=== PATIENT | female | born 1965 | race Caucasian/White ===

== ENCOUNTER 2016-10-27 10:54 | Emergency (ER) | payer BC ==
--- NOTE | 2016-10-27 11:39 | ED ---
General Adult HPI - General Chief complaint: Recheck/Abnormal Lab/Rx Stated complaint: cough,rib pain Time Seen by Provider: 10/27/16 11:28 Source: patient, RN notes reviewed, old records reviewed Mode of arrival: ambulatory Limitations: no limitations - History of Present Illness Initial comments: This is a 51-year-old female here for evaluation. This patient comes in for evaluation of rib pain. Patient's a cough congestion and not fill of her period , did have coughing and felt pop on the left side. Patient has no significant cardiac risk factors, does have K surgical history. No smoking. No recent fevers, no modifying factors for symptoms, no pain control - Related Data Home Medications Medication Instructions Recorded Confirmed Naproxen Sodium [Aleve] 440 mg PO BID PRN 10/27/16 10/27/16 Previous Rx's Medication Instructions Recorded Acetaminophen with Codeine 1 tab PO HS #30 tab 10/27/16 [Tylenol w/codeine #3] Benzonatate [Tessalon Perles] 200 mg PO TID #30 capsule 10/27/16 Naproxen [Naprosyn] 500 mg PO Q12HR #60 tab 10/27/16 Allergies Allergy/AdvReac Type Severity Reaction Status Date / Time No Known Allergies Allergy Verified 10/27/16 11:38 Review of Systems ROS Statement: Those systems with pertinent positive or pertinent negative responses have been documented in the HPI. ROS Other: All systems not noted in ROS Statement are negative. Past Medical History Past Medical History: No Reported History History of Any Multi-Drug Resistant Organisms: None Reported Past Surgical History: Bariatric Surgery, Hysterectomy, Tonsillectomy, Tubal Ligation Past Psychological History: No Psychological Hx Reported Smoking Status: Never smoker Past Alcohol Use History: Rare Past Drug Use History: None Reported General Exam Limitations: no limitations General appearance: alert, in no apparent distress Head exam: Present: atraumatic, normocephalic, normal inspection Eye exam: Present: normal appearance, PERRL, EOMI. Absent: scleral icterus, conjunctival injection, periorbital swelling ENT exam: Present: normal exam, mucous membranes moist Neck exam: Present: normal inspection. Absent: tenderness, meningismus, lymphadenopathy Respiratory exam: Present: normal lung sounds bilaterally. Absent: respiratory distress, wheezes, rales, rhonchi, stridor Cardiovascular Exam: Present: regular rate, normal rhythm, normal heart sounds. Absent: systolic murmur, diastolic murmur, rubs, gallop, clicks GI/Abdominal exam: Present: soft, normal bowel sounds. Absent: distended, tenderness, guarding, rebound, rigid Extremities exam: Present: normal inspection, full ROM, normal capillary refill. Absent: tenderness, pedal edema, joint swelling, calf tenderness Back exam: Present: normal inspection Neurological exam: Present: alert, oriented X3, CN II-XII intact Psychiatric exam: Present: normal affect, normal mood Skin exam: Present: warm, dry, intact, normal color. Absent: rash Course Vital Signs 10/27/16 11:13 Temperature 98.0 F Pulse Rate 76 Respiratory 20 Rate Blood Pressure 138/62 O2 Sat by Pulse 99 Oximetry - Reevaluation(s) Reevaluation #1: 10/27/16 12:51 Patient's in no acute distress Medical Decision Making - Medical Decision Making 51 female here for evaluation. Patient is here for evaluation of rib pain left rib pain was worse with cough or movement. Patient has rib contusion, known no noted fracture, no pneumothorax, no pneumonia. Patient was discharged home for pain control with antitussive - Radiology Data Radiology results: report reviewed (Chest x-ray with ribs are negative for fracture, no pneumonia), image reviewed Disposition Clinical Impression: Contusion of rib on left side Disposition: HOME SELF-CARE Condition: Good Instructions: Rib Contusion (ED) Prescriptions: Acetaminophen with Codeine [Tylenol w/codeine #3] 1 tab PO HS #30 tab Benzonatate [Tessalon Perles] 200 mg PO TID #30 capsule Naproxen [Naprosyn] 500 mg PO Q12HR #60 tab Referrals: Mikey Bass III, MD [Primary Care Provider] - 1-2 days
--- NOTE | 2016-10-27 11:55 | XR ---
EXAMINATION TYPE: XR ribs LT w pa chest xray DATE OF EXAM: 10/27/2016 11:48 AM COMPARISON: NONE HISTORY: Pain TECHNIQUE: Single view of the chest for views of the left ribs are submitted. FINDINGS: The lungs are clear. No Evidence for pneumothorax. No evidence for focal contusion. Medi astinal structures are midline. Evaluation of the ribs fails to demonstrate evidence for displaced r ib fracture or secondary sign of rib fracture. IMPRESSION: Negative study
[2016-10-27 13:02] VITALS: BP 129/78; PULSE 78; RESP 16; TEMP 97.8
== END 2016-10-27 13:01 | disposition home or self-care (01) ==
LOC: EC 10:54
DX: S20.212A Contusion of left front wall of thorax, initial encounter (principal); X50.9XXA Other and unspecified overexertion or strenuous movements or postures, initial encounter
CPT/HCPCS: 99283

== ENCOUNTER → 2019-04-01 | Outpatient (CLI) | payer OTHER ==
--- NOTE | 2019-04-04 10:04 | MM ---
Reason for exam: screening (asymptomatic). Last mammogram was performed 11 years and 11 months ago. Physical Findings: A clinical breast exam by your physician is recommended on an annual basis and results should be correlated with mammographic findings. MG Screening Mammo w CAD Bilateral CC and MLO view(s) were taken. No prior studies available for comparison. There are scattered fibroglandular densities. There is no discrete abnormality. ASSESSMENT: Negative, BI-RAD 1 RECOMMENDATION: Routine screening mammogram of both breasts in 1 year.
== END | disposition home or self-care (01) ==
LOC: RADMAMWWP 07:30
PROVIDERS: ATTEND Pediatrics
DX: Z12.31 Encounter for screening mammogram for malignant neoplasm of breast (principal)
CPT/HCPCS: 77067

== ENCOUNTER → 2021-10-03 | Outpatient (CLI) | payer OTHER ==
--- NOTE | 2021-10-04 04:58 | MR ---
EXAMINATION TYPE: MR hip LT wo con DATE OF EXAM: 10/03/2021 COMPARISON: None HISTORY: Left hip pain Multiplanar multiecho imaging of the pelvis and left hip without contrast. Pelvic ring is intact. Sacroiliac joints appear normal. Proximal femurs appear intact. Hip joint spac es are fairly normal. There is no evidence of hip dysplasia. There is no sign of avascular necrosis. There is no evidence of a fracture. Bladder distends smoothly. There is no free fluid in the pelvis. There is no evidence of a pelvic mas s. There is no evidence of a soft tissue mass. Muscle structures are symmetric. There is no sign of hip joint effusion. IMPRESSION: Negative MR scan of the left hip.
== END | disposition home or self-care (01) ==
LOC: RADMRIMAIN 07:57
PROVIDERS: ATTEND Orthopaedic Surgery
DX: M25.552 Pain in left hip (principal)

== ENCOUNTER → 2021-12-18 | Outpatient (CLI) | payer OTHER ==
--- NOTE | 2021-12-18 12:19 | MR ---
EXAMINATION TYPE: MR lumbar spine wo con DATE OF EXAM: 12/18/2021 12:15 PM COMPARISON: NONE HISTORY: Left hip pain x2 years Multiplanar, MultiSpin echo imaging of the lumbar spine was performed. L1-L2: Normal disc appearance without desiccation. No herniation, protrusion or disc bulging. No ca nal stenosis is present. Foramina are patent bilaterally. L2-L3: Normal disc appearance without desiccation. No herniation, protrusion or disc bulging. No ca nal stenosis is present. Foramina are patent bilaterally. L3-L4: Normal disc appearance without desiccation. No herniation, protrusion or disc bulging. No ca nal stenosis is present. Foramina are patent bilaterally. L4-L5: There is mild decreased signal ossified noted compatible with degenerative disc disease. Mild posterior disc bulge. No evidence for disc herniation or protrusion. No evidence for central stenosis or lateral recess stenosis. There is mild left foraminal encroachment. L5-S1: Normal disc appearance without desiccation. No herniation, protrusion or disc bulging. No ca nal stenosis is present. Foramina are patent bilaterally. Lumbar segments are intact. No paraspinal masses are identified. Conus medullaris has a normal appe arance. IMPRESSION: 1. Mild degenerative disc disease and posterior disc bulging at L4-5. Mild left foraminal encroachmen t at this level as well.
== END | disposition home or self-care (01) ==
LOC: RADMRIMAIN 11:00
PROVIDERS: ATTEND Orthopaedic Surgery
DX: M51.36 Other intervertebral disc degeneration, lumbar region (principal); M51.26 Other intervertebral disc displacement, lumbar region; M25.552 Pain in left hip
CPT/HCPCS: 72148

== ENCOUNTER → 2022-01-17 | Outpatient (CLI) | payer OTHER ==
[2022-01-17 14:44] LABS: Basophils # (A) 0.03 X 10*3/uL (0.00-0.10); Basophils % (A) 0.7 %; Eosinophils # (A) 0.08 X 10*3/uL (0.04-0.35); Eosinophils % (A) 1.9 %; HCT 43.1 % (37.2-46.3); HGB 14.1 g/dL (12.0-15.0); Immature Grans, Automated 0.2 %; Lymphocytes # (A) 1.68 X 10*3/uL (0.90-5.00); MCH 30.1 pg (27.0-32.0); MCHC 32.7 g/dL (32.0-37.0); MCV 92.1 fL (80.0-97.0); Mean Platelet Volume 10.5 fL (9.5-12.2); Monocytes # (A) 0.24 X 10*3/uL (0.20-1.00); Monocytes % (A) 5.6 %; NRBC Per 100 WBC 0 /100 WBCS (0.0-0.0); Neutrophils # (A) 2.27 X 10*3/uL (1.80-7.70); Neutrophils % (A) 52.6 %; Platelet Count 224 X 10*3/uL (140-440); RBC 4.68 X 10*6/uL (4.10-5.20); RDW 11.9 % (11.5-14.5); WBC 4.31 X 10*3/uL (4.50-10.00)
[2022-01-17 16:18] LABS: African American GFR (CKD) 113.4 (60.0-200.0); Anion Gap 10.7 mmol/L (10.00-18.00); BUN/Creat Ratio 18.28 Ratio (12.00-20.00); Blood Urea Nitrogen 11.9 mg/dL (9.0-27.0); Calcium 9.2 mg/dL (8.7-10.3); Carbon Dioxide 24.4 mmol/L (20.0-27.5); Non-African American GFR(CKD) 97.8 (60.0-200.0); Potassium 4.4 mmol/L (3.5-5.5)
[2022-01-17 16:27] LABS: INR 0.9 (0.90-1.11)
== END | disposition home or self-care (01) ==
LOC: LABPAT 09:20
PROVIDERS: ATTEND Orthopaedic Surgery
DX: Z01.812 Encounter for preprocedural laboratory examination (principal); M16.12 Unilateral primary osteoarthritis, left hip; Z22.322 Carrier or suspected carrier of Methicillin resistant Staphylococcus aureus
CPT/HCPCS: 36415; 80048; 85025; 85610; 87070

== ENCOUNTER 2022-01-27 06:16 | Day surgery (SDC) | payer OTHER ==
[2022-01-23 11:02] VITALS: BMI 30.7
--- NOTE | 2022-01-26 12:03 | HP ---
HISTORY AND PHYSICAL DATE OF SURGERY: 01/27/2022 Ryann Hurd is a 56-year-old patient seen with symptomatic left hip osteoarthritis. We discussed options for treatment. She elected to proceed with direct anterior left total hip arthroplasty. Consent was obtained. PAST MEDICAL HISTORY: Hypothyroidism. PAST SURGICAL HISTORY: Noncontributory. DAILY MEDICATIONS: Aleve. ALLERGIES: NONE REPORTED. SOCIAL HISTORY: She denies tobacco use. PHYSICAL EVALUATION OF THE LEFT HIP: There is diffuse tenderness about the hip girdle. Limited range of motion with severe pain. Positive hip impingement sign. Straight-leg raise negative. Distal neurovascular exam is intact. Radiographs of the left hip reveal osteoarthritic changes. MRI left hip reveal osteoarthritic changes. IMPRESSION: Left hip osteoarthritis. PLAN: Direct anterior left total hip arthroplasty. MMODL / IJN: [id number] /
[~2022-01-27 06:16] MED LIST: ACETAMINOPHEN TAB 500 MG TAB PO PRN; DEXAMETHASONE SOD PHOSPHATE 4 MG/ML 1 ML VIAL IV ONE; MELOXICAM 7.5 MG TAB PO PRN; MIDAZOLAM 2 MG/2 ML VIAL IV PRN; ONDANSETRON 4 MG/2 ML VIAL IVP ONE; SCOPOLAMINE 1 MG/72 HR PATCH TRANSDERM ONE; TRANEXAMIC ACID IN NACL,ISO-OS 1,000 MG in SALINE 1 100ML.BAG IVPB PRN
[2022-01-27] MEDS: LACTATED RINGERS 1,000 ML IV SCH ×2 (06:47→14:25)
[2022-01-27] MEDS ORDERED: LIDOCAINE 1% (10MG/ML) FOR IV START INTRADERMA ONE (07:10)
[2022-01-27] MEDS ORDERED: TRANEXAMIC ACID IN NACL,ISO-OS 1,000 MG/100 ML BAG ONE (07:30)
[2022-01-27] MEDS ORDERED: ROCURONIUM 10 MG/ML (5 ML VIAL) IV ONE (07:30)
[2022-01-27] MEDS ORDERED: LIDOCAINE 1% INJ 10MG/ML (20 ML MDV) ONE (07:30)
[2022-01-27] MEDS ORDERED: MIDAZOLAM 2 MG/2 ML VIAL ONE (07:30)
[2022-01-27] MEDS ORDERED: HYDROmorphone (PF) 1 MG/ML ONE (07:30)
[2022-01-27] MEDS ORDERED: GLYCOPYRROLATE 0.2 MG/ML 2 ML VIAL ONE (07:30)
[2022-01-27] MEDS ORDERED: SUCCINYLCHOLINE CHLORIDE 100 MG/5 ML SYR IV ONE (07:30)
[2022-01-27] MEDS ORDERED: PROPOFOL 10 MG/ML 20 ML VIAL IV ONE (07:30)
[2022-01-27] MEDS ORDERED: fentaNYL (PF) 50 MCG/ML 2 ML AMP ONE (07:30)
[2022-01-27] MEDS ORDERED: NEOSTIGMINE 1 MG/ML 10 ML VIAL ONE (07:30)
[2022-01-27] MEDS ORDERED: BUPIVACAINE (PF) 0.5% 30 ML VIAL SQ ONE (07:31)
[2022-01-27] MEDS ORDERED: ceFAZolin 1,000 MG in SODIUM CHLORIDE 0.9% 1,000 ML IRRIGATION ONE (08:07)
[2022-01-27] MEDS ORDERED: HYDROmorphone 0.5 MG/0.5 ML SYRINGE IVP PRN (09:28)
[2022-01-27] MEDS ORDERED: LACTATED RINGERS 1,000 ML IV ONE (09:28)
[2022-01-27] MEDS ORDERED: HYDROmorphone 1 MG/ML 1 ML SYRINGE IVP PRN (09:28)
[2022-01-27] MEDS ORDERED: NALOXONE 0.4 MG/ML 1 ML VIAL IV PRN (09:28)
[2022-01-27] MEDS ORDERED: ONDANSETRON 4 MG/2 ML VIAL IVP PRN (09:28)
[2022-01-27] MEDS ORDERED: HYDROmorphone 0.2 MG/1 ML SYRINGE IVP PRN (09:28)
--- NOTE | 2022-01-27 09:28 | P.OP ---
Date of Procedure: 01/27/22 Preoperative Diagnosis: Left hip osteoarthritis Postoperative Diagnosis: Left hip osteoarthritis Procedure(s) Performed: Direct anterior left total hip arthroplasty Implants: 1. Depuy Corail 125 standard collar size 12 press-fit femoral stem 2. Depuy pinnacle 52 mm press-fit acetabular shell 3. Depuy pinnacle neutral polyethylene acetabular liner 36 mm ID 52 mm OD 4. Biolox delta ceramic femoral head +1.5 36 mm Anesthesia: JUSTINEA, local Surgeon: Mahad Moyer [employer] Supervisor #1: Morales Andrade Estimated Blood Loss (ml): 250 Pathology: other (Femoral head) Condition: stable Disposition: PACU Indications for Procedure: 56-year-old patient seen with symptomatic left hip osteoarthritis. After treatment options were discussed, she elected to proceed with direct anterior left total hip arthroplasty. Operative Findings: see description of procedure Description of Procedure: The patient was taken to the operative suite. Patient underwent a general anesthetic by the department of anesthesia. Patient was then transferred to the [facility] table. Patient was given preoperative IV antibiotics and TXA. Both lower extremities were placed in standard leg spars. The hip was then prepped and draped in the normal sterile orthopedic fashion. A standard anterior incision was made beginning 3 cm lateral and 1 cm distal to the ASIS extending 10 cm. Dissection was then carried down through the subcutaneous soft tissues down to the fascia overlying the tensor fascia teressa. An incision was now made through the fascia. Careful dissection was taken down exposing the tensor fascia teressa muscle. A Cobra retractor was now placed along the medial femoral neck and a second one along the lateral femoral neck. The venous circumflex vessels were now identified, cauterized and clipped. We identified the anterior hip capsule. An incision was made through the hip capsule along the lateral border. I performed a partial anterior capsulectomy. Retractors were now placed around the femoral neck itself. A femoral neck cut was now made with a sagittal saw. It was completed with an osteotome at the lateral neck area. The femoral head was now removed without difficulty. The extremity was now rotated to 60 of external rotation. It was locked in position. Residual labrum was now debrided out. Serial reaming was performed of the acetabulum while Bruno barr sisted holding an anterior retractor for exposure. Once we reached the appropriate size and a trial was position and fit nicely. The appropriate size was now chosen opened and made available. It was introduced into the acetabulum without difficulty. The C-arm/fluoroscopy was now brought into the operative field. We made sure we had a true AP pelvic view. We now under direct C-arm/fluoroscopy introduced into the acetabular component with appropriate version and inclination. I held the cup in appropriate position well Bruno IRELAND used a mallet to seat the acetabular component. I noted the component now to be well seated and stable. Acetabular cup introduce her was removed. The C-arm was pulled back. An appropriate liner was introduced and clicked into position. It was felt to be stable. At this point retractors were removed. The extremity was now placed into 120 external rotation with no traction. The leg was now dropped to the ground and adducted. Appropriate retractors were now positioned along the proximal femur. We also placed our femoral look into position. Additional capsular releasing was performed to gain access to the proximal femur. We now used a box osteotome. A canal finder was now utilized. Serial broaching was now performed with the assistance of Bruno IRELAND tapping the broaches down with a mallet while held the broach in appropriate rotation and position. This was done until we reached the appropriate size with good overall rotational stability. Appropriate calcar planing was performed. A trial head/neck was placed into position. The hip was now reduced. The C- arm/fluoroscopy was brought back into the operative field. I obtained an AP pelvis demonstrating adequate leg length alignment. The trial components appeared appropriately sized and positioned. The C-arm/fluoroscopy was pulled back. Retractors were repositioned and the hip was dislocated. The leg was again taken down to the ground and adducted. Appropriate retractors were repositioned as well as the femoral hook. All trial components were removed. The femoral implant was opened along with the femoral head. The femoral implant was introduced on the appropriate handle into our pre-broached area. I held the component position well Bruno IRELAND used a mallet to seat the femoral component. The femoral component was now noted to be well seated and stable.. The femoral head was introduced with good positioning and fixation noted. Retractors were now removed. The hip was now reduced. There appeared be good positioning of the hip confirmed on intraoperative fluoroscopy. Spot films were obtained to document this. A second gram of TXA was given. The deep and superficial soft tissues were infiltrated with local analgesic. Bipolar cautery had been utilized intermittently through the procedure for hemostasis. The wound was irrigated copiously with pulse lavage mechanical irrigation. The fascia was repaired with Vicryl suture. The subcutaneous soft tissues were repaired in layers with Vicryl suture. The skin was approximated with pernio/Dermabond. Sterile dressings were applied. Patient was then awakened, transferred to a bed and taken to recovery in stable condition. Bruno IRELAND assisted with the complex procedure.
--- NOTE | 2022-01-27 09:30 | FL ---
Fluoroscopy History: Total LT hip replacement Total LT hip replacement. 37 sec fl time. 5 images sent to PACS
[2022-01-27 09:48] VITALS: TEMP 97.3
[2022-01-27 10:07] VITALS: RESP 16
[2022-01-27] MEDS: HYDROmorphone 0.5 MG/0.5 ML SYRINGE IVP PRN ×2 (10:09→11:01)
[2022-01-27] MEDS ORDERED: IV FLUID CONTINUATION 800 ML IV ONE (11:33)
[2022-01-27] MEDS ORDERED: HYDROcodone/APAP 7.5-325MG 1 EACH TAB ONE (11:53)
[2022-01-27 14:33] VITALS: BP 102/57; PULSE 57
== END 2022-01-27 15:06 | disposition home health service (06) ==
LOC: OR 06:16
PROVIDERS: ATTEND Orthopaedic Surgery
DX: M16.12 Unilateral primary osteoarthritis, left hip (principal)
CPT/HCPCS: 27130; 97110; 97161; 86900; 86901; 86850; 88300; 73501; C1776; J2250; J1100; J2710; J0690 ×2; J2405; J2001; J3010; J1170 ×2; J0330; J2704

== ENCOUNTER 2023-03-01 11:22 | Emergency (ER) | payer OTHER ==
[2023-03-01] MEDS ORDERED: KETOROLAC 15 MG/ML 1 ML VIAL IM STA (11:58)
--- NOTE | 2023-03-01 12:35 | ED ---
General Adult HPI - General Chief complaint: Fall Stated complaint: fall - lt side pain Time Seen by Provider: 03/01/23 11:52 Source: patient, RN notes reviewed, old records reviewed Mode of arrival: ambulatory Limitations: no limitations - History of Present Illness Initial comments: 57-year-old female presents for evaluation of left-sided pain predominantly in her left lateral chest wall after being thrown from a manual. She denies head injury or loss consciousness. Denies anticoagulation. Denies neck trauma or neck pain currently. She did have some injury to the left arm and noticed some numbness in the fourth and fifth digits. No pain in the arm. No pain in the hip or abdomen. - Related Data Previous Rx's Medication Instructions Recorded Aspirin [Adult Low Dose Aspirin EC] 81 mg PO BID #60 tab 01/27/22 Docusate [Colace] 100 mg PO DAILY #30 capsule 01/27/22 HYDROcodone/APAP 7.5-325MG [[place] 1 each PO Q6HR PRN #28 tab 01/27/22 7.5] Allergies Allergy/AdvReac Type Severity Reaction Status Date / Time No Known Allergies Allergy Verified 01/23/22 10:52 Review of Systems ROS Statement: Those systems with pertinent positive or pertinent negative responses have been documented in the HPI. ROS Other: All systems not noted in ROS Statement are negative. Past Medical History Past Medical History: No Reported History History of Any Multi-Drug Resistant Organisms: None Reported Past Surgical History: Bariatric Surgery, Hysterectomy, Joint Replacement, Orthopedic Surgery, Tonsillectomy, Tubal Ligation Past Psychological History: No Psychological Hx Reported Past Alcohol Use History: Rare Past Drug Use History: None Reported General Exam Limitations: no limitations General appearance: alert, in no apparent distress Head exam: Present: atraumatic, normocephalic Eye exam: Present: normal appearance, PERRL ENT exam: Present: normal exam Neck exam: Present: normal inspection. Absent: tenderness, meningismus Respiratory exam: Present: normal lung sounds bilaterally, chest wall tenderness (Lateral and posterior chest wall pain) Cardiovascular Exam: Present: regular rate, normal rhythm GI/Abdominal exam: Present: soft. Absent: distended, tenderness Extremities exam: Present: normal inspection, normal capillary refill. Absent: pedal edema Back exam: Absent: vertebral tenderness Neurological exam: Present: alert, oriented X3 Psychiatric exam: Present: normal affect, normal mood Skin exam: Present: warm, dry, intact Course Vital Signs 03/01/23 11:44 Temperature 97.8 F Pulse Rate 67 Respiratory 16 Rate Blood Pressure 127/72 O2 Sat by Pulse 98 Oximetry - Reevaluation(s) Reevaluation #1: 03/01/23 13:44 Reevaluated, significantly improved pain with Toradol. Patient's only pain complaint is the left posterior lateral ribs Medical Decision Making - Medical Decision Making Was pt. sent in by a medical professional or institution ([facility] Trevi[facility], EVENING SITTER, urgent ca re, hospital, or residential...) When possible be specific @ -No Did you speak to anyone other than the patient for history (EMS, parent, family, police, friend...)? What history was obtained from this source @ -No Did you review nursing and triage notes (agree or disagree)? Why? @ -I reviewed and agree with nursing and triage notes Were old charts reviewed (outside hosp., previous admission, EMS record, old EKG, old radiological studies, urgent care reports/EKG's, residential records)? Report findings @ -No old charts were reviewed Differential Diagnosis (chest pain, altered mental status, abdominal pain women, abdominal pain men, vaginal bleeding, weakness, fever, dyspnea, syncope, headache, dizziness, GI bleed, back pain, seizure, CVA, palpatations, mental health, musculoskeletal)? @ rib Fracture, pneumothorax, pulmonary contusion EKG interpreted by me (3pts min.). @ -As above X-rays interpreted by me (1pt min.). @ Reviewed and interpreted by myself as no acute findings, no displaced rib fracture CT interpreted by me (1pt min.). @ -None done U/S interpreted by me (1pt. min.). @ -None done What testing was considered but not performed or refused? (CT, X-rays, U/S, labs)? Why? @ -None What meds were considered but not given or refused? Why? @ -None Did you discuss the management of the patient with other professionals (professionals i.e. [facility]KA Treviño, EVENING SITTER, lab, RT, psych nurse, social work program coordinator, cycling instructor, teacher, public records officer, ed case manager)? Give summary @ -No Was smoking cessation discussed for >3mins.? @ -No Was critical care preformed (if so, how long)? @ -No Were there social determinants of health that impacted care today? How? (Homele ssness, low income, unemployed, alcoholism, drug addiction, transportation, low edu. Level, literacy, decrease access to med. care, fpc, rehab)? @ -No Was there de-escalation of care discussed even if they declined (Discuss DNR or withdrawal of care, Hospice)? DNR status @ -No What co-morbidities impacted this encounter? (DM, HTN, Smoking, COPD, CAD, Cancer, CVA, ARF, Chemo, Hep., AIDS, mental health diagnosis, sleep apnea, morbid obesity)? @ -None Was patient admitted / discharged? Hospital course, mention meds given and route, prescriptions, significant lab abnormalities, going to OR and other pertinent info. @ 57-year-old female with fall from a mule. Patient has left lateral posterior rib pain with tenderness on palpation, no external signs of trauma. Lungs are clear to auscultation. X-ray negative for pneumothorax or displaced rib fracture. Urinalysis negative for acute bleeding. Patient feeling much better on reevaluation. Stable for outpatient follow-up. Return parameters discussed. Undiagnosed new problem with uncertain prognosis? @ -No Drug Therapy requiring intensive monitoring for toxicity (Heparin, Nitro, Insulin, Cardizem)? @ -No Were any procedures done? @ -No Diagnosis/symptom? @ -Rib contusion Acute, or Chronic, or Acute on Chronic? @ Acute Uncomplicated (without systemic symptoms) or Complicated (systemic symptoms)? @ Uncomplicated Side effects of treatment? @ -No Exacerbation, Progression, or Severe Exacerbation? @ -No Poses a threat to life or bodily function? How? (Chest pain, [place], [place], pneumonia, PE, COPD, DKA, ARF, appy, cholecystitis, CVA, Diverticulitis, Homicidal, Suicidal, threat to staff... and all critical care pts) @ -No - Lab Data Lab Results 03/01/23 Range/Units 13:02 Urine Color Yellow Urine Appearance Clear (Clear) Urine pH 5.5 (5.0-8.0) Ur Specific [place] 1.025 (1.001-1.035) Urine Protein Negative (Negative) Urine Glucose (UA) Negative (Negative) Urine Ketones Negative (Negative) Urine Blood Negative (Negative) Urine Nitrite Negative (Negative) Urine Bilirubin Negative (Negative) Urine Urobilinogen <2.0 (<2.0) mg/dL Ur Leukocyte Esterase Negative (Negative) Disposition Clinical Impression: Fall, Chest wall contusion Disposition: HOME SELF-CARE Condition: Fair Instructions (If sedation given, give patient instructions): Rib Contusion (ED) Is patient prescribed a controlled substance at d/c from ED?: No Referrals: Too Anguiano MD [Primary Care Provider] - 1-2 days Time of Disposition: 13:43
--- NOTE | 2023-03-01 13:22 | XR ---
EXAMINATION TYPE: XR ribs LT w pa chest xray DATE OF EXAM: 03/01/2023 COMPARISON: Chest x-ray 10/27/2016 HISTORY: Fall left side pain TECHNIQUE: 2 view left ribs supplemented with frontal chest FINDINGS: No pneumothorax is evident. No acute displaced rib fractures are evident. Follow up exams c an be performed 7-10 days from acute trauma for continued pain. IMPRESSION: 1. No acute displaced rib fractures identified. Follow-up can be performed as clinically indicated
[2023-03-01 13:36] LABS: Appearance,Urine Clear (Clear); Bilirubin,Urine Negative (Negative); Blood,Urine Negative (Negative); Color,Urine Yellow; Glucose,Urine (UA) Negative (Negative); Ketones,Urine Negative (Negative); Leukocyte Esterase,Urine Negative (Negative); Nitrite,Urine Negative (Negative); PH, Urine 5.5 (5.0-8.0); Protein,Urine Negative (Negative); Specific Gravity,Urine 1.025 (1.001-1.035); Urobilinogen,Urine <2.0 mg/dL (<2.0)
[2023-03-01 13:59] VITALS: BP 103/56; PULSE 62; RESP 17; TEMP 97.4
== END 2023-03-01 13:59 | disposition home or self-care (01) ==
LOC: EC 11:22
DX: S20.212A Contusion of left front wall of thorax, initial encounter (principal); W20.8XXA Other cause of strike by thrown, projected or falling object, initial encounter
CPT/HCPCS: 81003; 71101; 99284; 96372; J1885

== ENCOUNTER 2023-03-06 20:18 | Emergency (ER) | payer OTHER ==
[2023-03-06 20:34] VITALS: BP 117/67; TEMP 97.8
--- NOTE | 2023-03-06 21:08 | ED ---
General Adult HPI - General Source: patient Mode of arrival: wheelchair Limitations: no limitations <Mckenzie Chung - Last Filed: 03/06/23 21:08> - General Source: RN notes reviewed <Chiquita Lujan - Last Filed: 03/07/23 03:24> - General Chief complaint: Chest Pain Stated complaint: rib pain/revisit Time Seen by Provider: 03/06/23 21:08 - History of Present Illness Initial comments: She 7-year-old female presents to the emergency department with chief complaint of rib pain. Patient states that she was here on Mother's Day after she fell off of her mule and was diagnosed with a rib contusion. She states that today she sneezed and had increasing pain in the area that she was having pain after she fell off of her mule. (Mckenzie Chung) When I evaluated the patient: This is a 57-year-old female with no s ignificant past medical history who presents to the emergency department with a chief complaint of rib pain. Patient reports that she fell off of her horse on Mother's Day. She reports that she sneezed earlier today and has increased worsening pain to the left flank. She denies any new trauma or injury. She reports that it is worse when she moves. She's been taking Tylenol at home with mild symptomatic relief. She denies any fever, chills, cough, chest pain, shortness of breath, palpitations, nausea, vomiting, dysuria, hematuria. (Chiquita Lujan) - Related Data Previous Rx's Medication Instructions Recorded Aspirin [Adult Low Dose Aspirin EC] 81 mg PO BID #60 tab 01/27/22 Docusate [Colace] 100 mg PO DAILY #30 capsule 01/27/22 HYDROcodone/APAP 7.5-325MG [[place] 1 each PO Q6HR PRN #28 tab 01/27/22 7.5] Ketorolac [Toradol] 10 mg PO Q6HR #15 tab 03/06/23 Lidocaine 5% Patch [Lidoderm 5% 1 patch TOPICAL DAILY #10 patch 03/06/23 Patch] Allergies Allergy/AdvReac Type Severity Reaction Status Date / Time No Known Allergies Allergy Verified 03/06/23 20:34 Review of Systems ROS Other: All systems not noted in ROS Statement are negative. <Mckenzie Chung - Last Filed: 03/06/23 21:08> ROS Other: All systems not noted in ROS Statement are negative. <Chiquita Lujan - Last Filed: 03/07/23 03:24> ROS Statement: Those systems with pertinent positive or pertinent negative responses have been documented in the HPI. Past Medical History Past Medical History: No Reported History History of Any Multi-Drug Resistant Organisms: None Reported Past Surgical History: Bariatric Surgery, Hysterectomy, Joint Replacement, Orthopedic Surgery, Tonsillectomy, Tubal Ligation Past Psychological History: No Psychological Hx Reported Smoking Status: Never smoker Past Alcohol Use History: Rare Past Drug Use History: None Reported <Mckenzie Chung - Last Filed: 03/06/23 21:08> General Exam Limitations: no limitations <Mckenzie Chung - Last Filed: 03/06/23 21:08> <Chiquita Lujan - Last Filed: 03/07/23 03:24> - General Exam Comments Initial Comments: Visual Physical Exam Vital signs reviewed General: Well-appearing, nontoxic, no acute distress. Head: Normocephalic, atraumatic Eyes: PERRLA, EOMI ENT: Airway patent Chest: Nonlabored breathing Skin: No visual rash, normal skin tone Neuro: Alert and oriented 3 Musculoskeletal: No gross abnormalities (Mckenzie Chung) General: Alert, in no acute distress Head: atraumatic normocephalic. Eyes PERRL, EOMI intact, mucous membranes moist Respiratory: Lungs clear to auscultation bilaterally Cardiovascular: Heart rate regular rate and rhythm Abdominal: Soft without guarding or rebound no CVA tenderness Extremities: Normal inspection with full range of motion and normal capillary refill Neuroogic: alert and oriented 3, CN II-XII intact, able to ambulate with steady gait Skin: warm dry and intact with normal color (Chiquita Lujan) Course Vital Signs 03/06/23 03/06/23 03/06/23 20:31 21:45 22:12 Temperature 97.8 F Pulse Rate 74 71 68 Respiratory 20 14 17 Rate Blood Pressure 117/67 O2 Sat by Pulse 99 98 96 Oximetry 03/06/23 22:44 Temperature Pulse Rate 80 Respiratory 14 Rate Blood Pressure O2 Sat by Pulse 98 Oximetry Medical Decision Making <Chiquita Lujan - Last Filed: 03/07/23 03:24> - Medical Decision Making Was pt. sent in by a medical professional or institution ([facility], [facility], urgent care, hospital, or [facility]...) When possible be specific @ -[No] Did you speak to anyone other than the patient for history (EMS, parent, family, police, friend...)? What history was obtained from this source @ -[No] Did you review nursing and triage notes (agree or disagree)? Why? @ -[I reviewed and agree with nursing and triage notes] Were old charts reviewed (outside hosp., previous admission, EMS record, old EKG, old radiological studies, urgent care reports/EKG's, [facility] records)? Report findings @ -[No old charts were reviewed] Differential Diagnosis (chest pain, altered mental status, abdominal pain women, abdominal pain men, vaginal bleeding, weakness, fever, dyspnea, syncope, headache, dizziness, GI bleed, back pain, seizure, CVA, palpatations, mental health, musculoskeletal)? @ -[not applicable] EKG interpreted by me (3pts min.). @ -[As above] X-rays interpreted by me (1pt min.). @ -X-rays negative for any acute process CT interpreted by me (1pt min.). @ -[None done] U/S interpreted by me (1pt. min.). @ -[None done] What testing was considered but not performed or refused? (CT, X-rays, U/S, labs)? Why? @ -[None] What meds were considered but not given or refused? Why? @ -[None] Did you discuss the management of the patient with other professionals (professionals i.e. [facility], [employer] [facility], lab, RT, psych nurse, rn social work, top former, teacher, accounting officer, community case manager)? Give summary @ -[No] Was smoking cessation discussed for >3mins.? @ -[No] Was critical care preformed (if so, how long)? @ -[No] Were there social determinants of health that impacted care today? How? (Homelessness, low income, unemployed, alcoholism, drug addiction, t ransportation, low edu. Level, literacy, decrease access to med. care, skilled nursing, rehab)? @ -[No] Was there de-escalation of care discussed even if they declined (Discuss DNR or withdrawal of care, Hospice)? DNR status @ -[No] What co-morbidities impacted this encounter? (DM, HTN, Smoking, COPD, CAD, Cancer, CVA, ARF, Chemo, Hep., AIDS, mental health diagnosis, sleep apnea, morbid obesity)? @ -[None] Was patient admitted / discharged? Hospital course, mention meds given and route, prescriptions, significant lab abnormalities, going to OR and other pertinent info. @ -Discharged. This is a 57-year-old female who presents the emergency department with flank pain. Patient had a thorough history and physical exam performed while in the ED. Physical exam is essentially unremarkable heart rate regular rate and rhythm, lungs clear to auscultation bilaterally abdomen is soft and nontender. Patient had imaging performed which were essentially unremarkable. I discussed the results in detail with the patient who verbalized understanding and all questions were addressed. She was given Toradol and lidoderm patches with symptomatic relief on the ED. Return precautions were discussed at length. Strongly recommended to follow up with primary care physician in 1-2 days. Patient discharged in stable condition. Case discussed with Dr. Hall [facility] who agrees with plan of care Undiagnosed new problem with uncertain prognosis? @ -[No] Drug Therapy requiring intensive monitoring for toxicity (Heparin, Nitro, Insulin, Cardizem)? @ -[No] Were any procedures done? @ -[No] Diagnosis/symptom? @ -left flank pain Acute, or Chronic, or Acute on Chronic? @ -acute Uncomplicated (without systemic symptoms) or Complicated (systemic symptoms)? @ -uncomplicated Side effects of treatment? @ -[No] Exacerbation, Progression, or Severe Exacerbation? @ -[No] Poses a threat to life or bodily function? How? (Chest pain, [place], [place], pneumonia, PE, COPD, DKA, ARF, appy, cholecystitis, CVA, Diverticulitis, Homicidal, Suicidal, threat to staff... and all critical care pts) @ -low likelihood (Chiquita Lujan) Disposition <Mckenzie Chung - Last Filed: 03/06/23 21:08> Is patient prescribed a controlled substance at d/c from ED?: No Time of Disposition: 22:27 <Chiquita Lujan - Last Filed: 03/07/23 03:24> Clinical Impression: Fall, Chest wall contusion Disposition: HOME SELF-CARE Condition: Stable Instructions (If sedation given, give patient instructions): Costochondritis (ED) Prescriptions: Lidocaine 5% Patch [Lidoderm 5% Patch] 1 patch TOPICAL DAILY #10 patch Ketorolac [Toradol] 10 mg PO Q6HR #15 tab Referrals: Too Anguiano MD [Primary Care Provider] - 1-2 days
[2023-03-06] MEDS ORDERED: KETOROLAC 15 MG/ML 1 ML VIAL IM STA (21:39)
--- NOTE | 2023-03-06 22:24 | XR ---
EXAMINATION TYPE: XR ribs LT w pa chest xray DATE OF EXAM: 03/06/2023 9:28 PM INDICATION: Patient age:Female; 57 years old; Reason for study: pain; COMPARISON: 03/01/2023 TECHNIQUE: Frontal and oblique views of the left ribs with frontal chest radiograph. FINDINGS: The ribs have a normal appearance. No evidence of fracture. Overall, the lungs are clear. The cardiac silhouette is normal in size. The remaining osseous structures are intact. Gastric lap band is present and limits evaluation of the lower ribs IMPRESSION: No acute osseous pathology.
[2023-03-06] MEDS ORDERED: LIDOCAINE 5% PATCH TOPICAL SCH (22:30)
[2023-03-06] MEDS ORDERED: ACET/COD 300 MG/30 MG STARTER PACK 6 TAB BTL PO STA (22:30)
[2023-03-06 22:46] VITALS: PULSE 80; RESP 14
== END 2023-03-06 22:45 | disposition home or self-care (01) ==
LOC: EC 20:18
DX: S20.219A Contusion of unspecified front wall of thorax, initial encounter (principal); W18.30XA Fall on same level, unspecified, initial encounter
CPT/HCPCS: 99285; 71101; 96372; J1885

== ENCOUNTER → 2025-01-20 | Outpatient (CLI) | payer OTHER ==
--- NOTE | 2025-01-20 07:49 | MM ---
Reason for Exam: Screening (asymptomatic). Last mammogram was performed 5 year(s) and 10 month(s) ago. Patient History: Menarche at age 12. First Full-Term at age 17. Right ovary removed at age 37. Hysterectomy at age 37. Risk Values: Brandie 5 year model risk: 1.0%. NCI Lifetime model risk: 4.7%. Prior Study Comparison: 04/02/2006 Bilateral Diagnostic Mammogram, [facility]. 04/26/2007 Bilateral Diagnostic Mammogram, [facility]. 04/01/2019 Bilateral Screening Mammogram, [facility]. Tissue Density: There are scattered areas of fibroglandular density. Findings: Analyzed By CAD. There is no suspicious group of microcalcifications or new suspicious mass in either breast. Overall Assessment: Negative, BI-RAD 1 Management: Screening Mammogram of both breasts in 1 year. . Patient should continue monthly self-breast exams. A clinical breast exam by your physician is recommended on an annual basis. This exam should not preclude additional follow-up of suspicious palpable abnormalities. Note on Brandie scores and lifetime risk: 1. A Brandie score greater than 3% is considered moderate risk. If this is the case, consider specialist referral to assess eligibility for a risk reducing agent. 2. If overall lifetime risk for the development of breast cancer is 20% or higher, the patient may qualify for future screening with alternating mammogram and breast MRI. [facility], , 01/20/2025 7:46 AM. Electronically signed and approved by: Fawad Card M.D. Radiologis
== END | disposition home or self-care (01) ==
LOC: RADMAMWWP 07:19
PROVIDERS: ATTEND Pediatrics
DX: Z12.31 Encounter for screening mammogram for malignant neoplasm of breast (principal); R92.323 Mammographic fibroglandular density, bilateral breasts
CPT/HCPCS: 77063; 77067